=== PATIENT | female | born 1995 | race Caucasian/White ===

== ENCOUNTER 2017-06-16 15:08 | Emergency (ER) | payer MEDICAID ==
[~2017-06-16] VITALS: Ht 172.7 cm; Wt 53.5 kg
[2017-06-16 15:21] VITALS: BP 137/74
== END 2017-06-16 19:00 | disposition home or self-care (01) ==
LOC: ED 15:08
DX: S52.601A Unspecified fracture of lower end of right ulna, initial encounter for closed fracture (principal); W01.198A Fall on same level from slipping, tripping and stumbling with subsequent striking against other object, initial encounter; Y93.89 Activity, other specified; Y92.89 Other specified places as the place of occurrence of the external cause; Y99.8 Other external cause status; R03.0 Elevated blood-pressure reading, without diagnosis of hypertension